=== PATIENT | male | born 1995 | race Asian ===

== ENCOUNTER 2016-04-01 16:11 | Emergency (ER) | payer OTHER ==
[~2016-04-01] VITALS: Ht 177.8 cm; Wt 77.7 kg
[2016-04-01 16:12] VITALS: TEMP 36.9; Ht 177.8 cm; Wt 77.7 kg
[2016-04-01] MEDS ORDERED: XYLOCAINE 1%/SOD BICARB 20 ML VIAL INFIL ONE (16:45)
--- NOTE | 2016-04-01 16:48 | EMERGENCY ROOM VISIT NOTE ---
ED Visit Note First contact with patient: 16:26 CHIEF COMPLAINT: Hand laceration HISTORY OF PRESENT ILLNESS: This 20-year-old male patient presents to the emergency department ambulatory after cutting the right hand this morning around 2 AM when he climbed over a fence and cut his hand. The bleeding has stopped. Denies weakness or numbness of the hand or fingers. The patient denies any pain. The patient denies any other injuries. The patient's Tetanus shot is up to date. He denies any other injury. He denies any head injury, headache, nausea, vomiting, loss of consciousness. REVIEW OF SYSTEMS: A 6 system review of systems was completed with positives and pertinent negatives listed in the HPI. ALLERGIES: No known allergies MEDICATIONS: None PMH: None SOCIAL HISTORY: The patient is a student. He lives locally currently PHYSICAL EXAM: Vital Signs: Reviewed Nurse's notes, vital signs stable. GENERAL : A 20-year-old male, in no acute distress, well-developed, well-nourished. SKIN: There is a 5 cm long laceration on the palmar aspect of the right hand. The edges gape apart with traction. There is no foreign material in the wound and it looks clean. There is no significant bleeding. No deep structures such as tendons, bones, or nerves are seen in the base of the wound. Normal strength and movement of the fingers and wrist. Capillary refill less than 2 seconds. Normal sensation to light and sharp touch. EMERGENCY DEPARTMENT COURSE: I examined the patient. Using sterile technique the wound was cleaned with Betadine. The area was sterilely draped. 5 ml of 1% buffered lidocaine was used to anesthetize the laceration on the hand. Once the patient was numb, the wound was copiously irrigated under pressure with 1 liter of sterile saline using the [employer] pulselavage. The wound was explored and was as described above. The laceration was repaired using 13 simple interrupted 5-0 nylon sutures with the wound edges being well approximated. The patient tolerated the procedure well. The bleeding stopped. The area was cleaned with sterile saline and dressed with bacitracin ointment and bandage. The patient was discharged home in good condition. There do not appear to be any visible tendon involvement on inspection. The patient has full range of motion and strength of the hand. I did copiously irrigate the wound. It was not contaminated. It did occur over 12 hours ago. I advised the patient of the risk of delayed primary closure. Given that it was the hand and a significant laceration, I did elect to repair the wound. The patient was in agreement. He will be placed on Keflex. He should follow up with orthopedics for further evaluation and management, particularly feet has any difficulty with wound healing or movement of the hand. DIAGNOSIS: Hand laceration DISCHARGE INSTRUCTIONS & TREATMENT: Keep wound clean and dry. Do not allow any crusting or dried blood to accumulate on sutures. If this occurs, use a 1:1 solution of hydrogen peroxide/water on a Q-tip to clean the wound. Use an antibiotic ointment for 3-4 days, then let wound dry. Suture removal in 12-14 days. Return sooner for any signs of infection (increasing redness, swelling, drainage). Ice and elevate for swelling and pain. Ibuprofen 600 mg every 6 hrs for pain. Keep covered when in sun until sutures removed then SPF 50 or higher for one year. Vitamin E oil if desired two weeks after suture removal for reduction of scar. Keflex one capsule every 6 hours for 7 days to help prevent infection Current/Historical Medications Scheduled Cephalexin Monohydrate (Keflex), 500 MG PO QID Allergies Coded Allergies: No Known Allergies (Unverified , 04/01/16) Vital Signs Date Time Temp Pulse Resp B/P Pulse Ox O2 Delivery O2 Flow Rate FiO2 04/01/16 17:37 86 18 149/85 100 04/01/16 16:12 36.9 91 18 107/77 97 Room Air Departure Information Impression Primary Impression: Laceration of hand with delay in treatment Dispostion Home / Self-Care Condition GOOD Prescriptions Cephalexin Monohydrate (Keflex) 500 Mg Cap 500 MG PO QID for 7 Days, #28 CAP Prov: Annamarie Obregon PA-C 04/01/16 Referrals [facility] (PCP) Rc Michelle M.D. Patient Instructions ED Laceration Hand, My [facility] Additional Instructions Keep wound clean and dry. Do not allow any crusting or dried blood to accumulate on sutures. If this occurs, use a 1:1 solution of hydrogen peroxide/ water on a Q-tip to clean the wound. Use an antibiotic ointment for 3-4 days, then let wound dry. Suture removal in 12-14 days. Return sooner for any signs of infection (increasing redness, swelling, drainage). Ice and elevate for swelling and pain. Ibuprofen 600 mg every 6 hrs for pain. Keep covered when in sun until sutures removed then SPF 50 or higher for one year. Vitamin E oil if desired two weeks after suture removal for reduction of scar. Keflex one capsule every 6 hours for 7 days to help prevent infection Problem Qualifiers Primary Impression: Laceration of hand with delay in treatment Encounter type: initial encounter Laterality: right Qualified Codes: S61.411A - Laceration without foreign body of right hand, initial encounter
[2016-04-01 17:37] VITALS: BP 149/85; PULSE 86; O2SAT 100
[2016-04-01] MEDS ORDERED: CEPH500C PO (17:38)
== END 2016-04-01 17:50 | disposition home or self-care (01) ==
LOC: C.EDB 16:12 → C.EDD 17:50
DX: S61.411A Laceration without foreign body of right hand, initial encounter (principal); W26.8XXA Contact with other sharp object(s), not elsewhere classified, initial encounter

== ENCOUNTER 2016-04-14 14:56 | Emergency (ER) | payer OTHER ==
[~2016-04-14] VITALS: Ht 177.8 cm; Wt 78.2 kg
[2016-04-14 15:11] VITALS: BP 119/75; PULSE 90; TEMP 37; O2SAT 99; Ht 177.8 cm; Wt 78.2 kg
--- NOTE | 2016-04-14 15:42 | EMERGENCY ROOM VISIT NOTE ---
ED Visit Note First contact with patient: 15:17 CHIEF COMPLAINT: "Removal of stitches". This patient returns to the ED today for removal of sutures that were placed 2 weeks ago. There has been no swelling, redness, or drainage from the wound. The patient feels like the laceration is healing well. He has been applying antibiotic ointment to the wound and keeping it covered. REVIEW OF SYSTEMS: Head: No headache, injury or neck pain. Skin: No rash, new lesions, or masses. General: No fever or chills, fatigue, loss of appetite , or significant recent weight gain or loss. PMH: The patient is healthy; there is no significant medical or surgical history. SOCIAL HISTORY: Patient lives at home. PHYSICAL EXAM: Vital Signs: Reviewed Nurse's notes. There is a sutured wound on the right hand with no signs of infection. There are [address] There is no erythema, swelling, or tenderness. The wound was moist and without evidence of complete wound healing. The wound edges do separate slightly. No erythema or signs of infection. There is no lymphangitic streaking or discharge. No vascular or neurologic deficits. EMERGENCY DEPARTMENT COURSE: The sutures were removed by alternating every other suture initially to evaluate integrity of skin closure. The superficial portion of the laceration was starting to separate but because the patient has had the stitches and notes 2 weeks now I felt that he should be removed. It was cleansed and then I used Mastisol around the edges and provide support for the laceration with Steri-Strips. 6 of these were placed. These were placed without difficulty. I suspect the patient's wound is not healing well secondary to him keeping it moist. Fortunately there was no evidence of infection or drainage. There was nothing to culture. There is no erythema, edema or undue tenderness. The Steri-Strips are to stay in place 24-48 hours. He was also given a number for a hand specialist follow up with. I suspect this will heal well. He is to return with any difficulties. He was educated upon worrisome symptoms in which to return, had questions answered prior to discharge, seemed happy with plan of care and was discharged home in good condition. In the evaluation treatment this patient the following differential diagnoses were entertained: Healing laceration, cellulitis, among others. Current/Historical Medications No Active Prescriptions or Reported Meds Allergies Coded Allergies: No Known Allergies (Unverified , 2/3/17) Vital Signs Date Time Temp Pulse Resp B/P Pulse Ox O2 Delivery O2 Flow Rate FiO2 04/14/16 15:11 37.0 90 18 119/75 99 Room Air Departure Information Impression Primary Impression: Encounter for removal of sutures Dispostion Home / Self-Care Condition GOOD Prescriptions No Active Prescriptions or Reported Meds Referrals [facility] (PCP) Kam Finney MD Patient Instructions My [facility] Additional Instructions You were seen in the emergency Department for removal of your sutures. There were no signs of infection. I am concerned that the top layers of the skin has not healed yet and believe this is secondary to the antibiotic ointment. Please keep the Steri-Strips on for the next 1-2 days. Please call the number listed above, this is for the hand specialist. Again there are no signs of infection at this time. Please stop using the antibiotic ointment on the hand. Please keep the hand dry with a dry dressing/gauze. Please return to the emergency department with any fevers, chills, worsening pain, drainage from the wound or any new/concerning symptoms.
== END 2016-04-14 15:56 | disposition home or self-care (01) ==
LOC: C.EDB 14:57 → C.EDD 15:56
DX: S61.411A Laceration without foreign body of right hand, initial encounter (principal); W26.8XXA Contact with other sharp object(s), not elsewhere classified, initial encounter